=== PATIENT | female | born 1995 | race Caucasian/White ===

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

== ENCOUNTER 2017-03-16 19:23 | Emergency (ER) | payer MEDICAID ==
[2017-03-16 21:19] LABS: BASOPHIL % 0.4 % (0-2); PLATELET COUNT 357 x10^3mcL (130-400); RED CELL DISTRIBUTION WIDTH 13.7 % (11.5-14.5)
[2017-03-16 21:29] LABS: CALCIUM 9.3 mg/dL (8.5-10.1); CARBON DIOXIDE 29.3 mmol/L (21-32); CHLORIDE SERUM 100 mmol/L (98-107); CREATININE SERUM 0.6 mg/dL (0.6-1.0); GFR1 > 60 mL/min; GLUCOSE SERUM 102 mg/dL (74-106); POTASSIUM SERUM 3.8 mmol/L (3.5-5.1); SODIUM SERUM 141 mmol/L (136-145)
[2017-03-16 21:34] LABS: ALBUMIN 3.7 g/dL (3.4-5.0); ALKALINE PHOSPHATASE 79 U/L (46-116); ALT/SGPT 116 U/L (14-59); AST/SGOT 68 U/L (15-37); BILIRUBIN TOTAL 0.3 mg/dL (0.20-1.00); TOTAL PROTEIN, SERUM 8.2 g/dL (6.4-8.2)
[2017-03-16 22:10] LABS: CK-MB 0.6 ng/mL (0-3.6)
[2017-03-16 22:35] VITALS: BP 143/95
== END 2017-03-16 22:35 | disposition home or self-care (01) ==
LOC: ED 19:23
PROVIDERS: Emergency Medicine
DX: I16.0 Hypertensive urgency (principal); E66.9 Obesity, unspecified; N92.6 Irregular menstruation, unspecified
CPT/HCPCS: 36415; 83880; Q0092

== ENCOUNTER 2017-07-14 12:10 | Emergency (ER) | payer MEDICAID ==
[~2017-07-14] VITALS: Ht 162.6 cm; Wt 154.2 kg
[2017-07-14 12:26] VITALS: BP 146/99; Ht 162.6 cm; Wt 154.2 kg
== END 2017-07-14 14:29 | disposition left against medical advice (07) ==
LOC: ED 12:10
DX: Z53.21 Procedure and treatment not carried out due to patient leaving prior to being seen by health care provider (principal)

== ENCOUNTER 2018-06-15 09:25 | Emergency (ER) | payer MEDICAID ==
[~2018-06-15] VITALS: Ht 160 cm; Wt 152.0 kg
[2018-06-15 09:28] VITALS: Ht 160 cm; Wt 152.0 kg
[2018-06-15 10:58] LABS: BASOPHIL % 0.4 % (0-2); PLATELET COUNT 292 x10^3mcL (130-400); RED CELL DISTRIBUTION WIDTH 13.6 % (11.5-14.5)
[2018-06-15 11:19] LABS: CALCIUM 9.1 mg/dL (8.5-10.1); CARBON DIOXIDE 26.7 mmol/L (21-32); CHLORIDE SERUM 99 mmol/L (98-107); CREATININE SERUM 0.6 mg/dL (0.6-1.0); GFR1 > 60 mL/min; GLUCOSE SERUM 265 mg/dL (74-106); POTASSIUM SERUM 3.6 mmol/L (3.5-5.1); SODIUM SERUM 135 mmol/L (136-145)
[2018-06-15 11:23] LABS: ALBUMIN 3.5 g/dL (3.4-5.0); ALKALINE PHOSPHATASE 84 U/L (46-116); ALT/SGPT 197 U/L (14-59); AST/SGOT 97 U/L (15-37); BILIRUBIN TOTAL 0.5 mg/dL (0.20-1.00); LIPASE 91 IU/L (73-393); TOTAL PROTEIN, SERUM 8.2 g/dL (6.4-8.2)
[2018-06-15 13:23] VITALS: BP 127/69
== END 2018-06-15 13:23 | disposition home or self-care (01) ==
LOC: ED 09:25
PROVIDERS: Emergency Medicine
DX: N76.0 Acute vaginitis (principal); E66.9 Obesity, unspecified
CPT/HCPCS: 87491; 87591; J0696; J2270; J2405; J7030

== ENCOUNTER 2018-06-17 03:30 | Emergency (ER) | payer MEDICAID ==
[~2018-06-17] VITALS: Ht 160 cm; Wt 152.1 kg
[2018-06-17 03:41] VITALS: Ht 160 cm; Wt 152.1 kg
[2018-06-17 04:41] LABS: BASOPHIL % 0.4 % (0-2); PLATELET COUNT 306 x10^3mcL (130-400); RED CELL DISTRIBUTION WIDTH 13.7 % (11.5-14.5)
[2018-06-17 04:45] LABS: UA SPECIFIC GRAVITY >=1.030 (1.005-1.035); microscopic required? YES; urine erythrocyte 3+ (NEGATIVE)
[2018-06-17 04:48] LABS: CALCIUM 8.4 mg/dL (8.5-10.1); CARBON DIOXIDE 28.2 mmol/L (21-32); CHLORIDE SERUM 97 mmol/L (98-107); CREATININE SERUM 0.8 mg/dL (0.6-1.0); GFR1 > 60 mL/min; GLUCOSE SERUM 273 mg/dL (74-106); POTASSIUM SERUM 3.4 mmol/L (3.5-5.1); SODIUM SERUM 136 mmol/L (136-145)
[2018-06-17 04:58] LABS: ALBUMIN 3.6 g/dL (3.4-5.0); ALKALINE PHOSPHATASE 98 U/L (46-116); ALT/SGPT 209 U/L (14-59); AST/SGOT 130 U/L (15-37); BILIRUBIN TOTAL 0.43 mg/dL (0.20-1.00); C REACTIVE PROTEIN 6.3 mg/dL (<=0.9)
[2018-06-17 04:59] LABS: TOTAL PROTEIN, SERUM 8.5 g/dL (6.4-8.2)
[2018-06-17 05:15] LABS: CREATINE KINASE 39 U/L (26-192)
[2018-06-17 05:27] LABS: FREE T4 1.25 ng/dL (0.76-1.46); FREE THYROXINE INDEX 4.3 ug/dL (1.4-4.5); T4(THYROXINE) 15.2 ug/dL (4.7-13.3)
[2018-06-17 05:37] LABS: CK-MB < 0.5 ng/mL (0-3.6)
[2018-06-17 05:48] LABS: ERYTHROCYTE SED RATE 38 mm/hr (0-20)
[2018-06-17 05:58] LABS: T3 TOTAL 1.86 ng/mL
[2018-06-17 06:26] VITALS: BP 125/63
== END 2018-06-17 06:26 | disposition home or self-care (01) ==
LOC: ED 03:30
PROVIDERS: Specialist
DX: A60.00 Herpesviral infection of urogenital system, unspecified (principal); N39.0 Urinary tract infection, site not specified
CPT/HCPCS: 84439; 87491; 87591; J1885; J2270; J2405; J7030

== ENCOUNTER 2018-10-28 09:34 | Emergency (ER) | payer MEDICAID ==
[~2018-10-28] VITALS: Ht 157.5 cm; Wt 152.9 kg
[2018-10-28 09:50] VITALS: Ht 157.5 cm; Wt 152.9 kg
[2018-10-28 11:11] LABS: microscopic required? NO
[2018-10-28 11:13] LABS: CALCIUM 8.4 mg/dL (8.5-10.1); CARBON DIOXIDE 29.1 mmol/L (21-32); CHLORIDE SERUM 98 mmol/L (98-107); CREATININE SERUM 0.6 mg/dL (0.6-1.0); GFR1 > 60 mL/min; GLUCOSE SERUM 333 mg/dL (74-106); POTASSIUM SERUM 3.6 mmol/L (3.5-5.1); SODIUM SERUM 135 mmol/L (136-145)
[2018-10-28 11:16] LABS: BASOPHIL % 0.4 % (0-2); PLATELET COUNT 314 x10^3mcL (130-400); RED CELL DISTRIBUTION WIDTH 13.9 % (11.5-14.5)
[2018-10-28 11:27] LABS: ALBUMIN 3.4 g/dL (3.4-5.0); ALKALINE PHOSPHATASE 106 U/L (46-116); ALT/SGPT 234 U/L (14-59); AST/SGOT 179 U/L (15-37); BILIRUBIN TOTAL 0.45 mg/dL (0.20-1.00); LIPASE 101 IU/L (73-393); TOTAL PROTEIN, SERUM 7.7 g/dL (6.4-8.2)
[2018-10-28 11:30] LABS: UA SPECIFIC GRAVITY 1.015 (1.005-1.035); urine erythrocyte NEGATIVE (NEGATIVE)
[2018-10-28 13:13] VITALS: BP 131/76
== END 2018-10-28 13:13 | disposition home or self-care (01) ==
LOC: ED 09:34
PROVIDERS: Emergency Medicine
DX: K29.00 Acute gastritis without bleeding (principal); J18.9 Pneumonia, unspecified organism; R73.9 Hyperglycemia, unspecified; E66.01 Morbid (severe) obesity due to excess calories; N91.2 Amenorrhea, unspecified; Z68.44 Body mass index [BMI] 60.0-69.9, adult
CPT/HCPCS: J1885; J2405; Q0092

== ENCOUNTER 2019-01-13 14:44 | Emergency (ER) | payer MEDICAID ==
[~2019-01-13] VITALS: Ht 162.6 cm; Wt 150.1 kg
[2019-01-13 14:54] VITALS: Ht 162.6 cm; Wt 150.1 kg
[2019-01-13 17:29] VITALS: BP 151/91
== END 2019-01-13 17:29 | disposition home or self-care (01) ==
LOC: ED 14:44
DX: S90.31XA Contusion of right foot, initial encounter (principal); X58.XXXA Exposure to other specified factors, initial encounter; Y93.89 Activity, other specified; Y92.89 Other specified places as the place of occurrence of the external cause; Y99.8 Other external cause status
CPT/HCPCS: J1885; Q0092